=== PATIENT | male | born 1940 | race Caucasian/White ===

== ENCOUNTER → 2019-11-21 19:20 | Outpatient (CLI) | payer MEDICARE, BC ==
[2012-09-28 08:43] VITALS: BMI 27.9
[~2019-11-21 19:20] MED LIST: ALLEGRA PO; ALLEGRA180 MG PO; BENADRYL25 MG PO; EPIPEN0.3 MG/0.3 IM; FLEXERIL10 MG PO; MIRAPEX0.75 MG; PRAVACHOL40 MG PO; PRILOSEC20 MG PO; QUINIDINE SULF200 MG PO
== END | disposition home or self-care (01) ==
LOC: D.LABREF 19:20
PROVIDERS: ATTEND Orthopaedic Surgery
DX: M17.11 Unilateral primary osteoarthritis, right knee (principal)

== ENCOUNTER 2019-11-22 17:15 | Inpatient (IN) | payer MEDICARE, BC ==
[~2019-11-22] VITALS: Ht 180.3 cm; Wt 93.0 kg
[2019-12-13] MEDS ORDERED: NORVASC10 MG PO (10:22)
[2019-12-13] MEDS ORDERED: AZELASTINE137 MCG/0. NASAL (10:22)
[2019-12-13] MEDS ORDERED: FLUTICASONE PRO16 GM NASAL (10:23)
[2019-12-13] MEDS ORDERED: METOPROLOL TART25 MG PO (10:23)
[2019-12-13] MEDS ORDERED: SINGULAIR10 MG PO (10:23)
[2019-12-13] MEDS ORDERED: PROAIR HFA8.5 G1 INH (10:24)
[2019-12-13] MEDS ORDERED: JANTOVEN4 MG PO (10:26)
[2019-12-13] MEDS ORDERED: JANTOVEN6 MG PO (10:27)
[2019-12-14 12:06] LABS: BASOPHILS 0.4 % (0-2); EOSINOPHILS 3.1 % (0-7); HEMATOCRIT 47.8 % (42.0-54.0); HEMOGLOBIN 15.4 g/dL (13.5-17.5); IMMATURE GRANULOCYTES 0.1 % (0-5); LYMPHOCYTES 24.2 % (15-50); MCH 30.1 pg (26.0-34.0); MCHC 32.2 g/dL (31.0-37.0); MCV 93.4 fL (80.0-100.0); MEAN PLATELET VOLUME 8.1 fL (7.4-10.4); MONOCYTES 9.9 % (2-11); NEUTROPHILS 62.3 % (40-80); PLATELET COUNT 248 10x3/uL (130-400); RBC 5.12 10x6/uL (4.20-6.10); RDW 14.2 % (11.5-14.5); WBC 7.1 10x3/uL (4.8-10.8)
[2019-12-14 12:09] LABS: BILIRUBIN NEGATIVE (NEGATIVE); KETONE NEGATIVE (NEGATIVE); NITRITE NEGATIVE (NEGATIVE); UROBILINOGEN NORMAL (NORMAL)
[2019-12-14 12:17] LABS: APTT 52.6 SECONDS (22.8-39.4); CARBON DIOXIDE 26.5 mmol/L (21.0-32.0); CREATININE - SERUM 1.2 mg/dL (0.6-1.3); INR 2.57 (0.85-1.17); POTASSIUM - SERUM 4.5 mmol/L (3.5-5.1); PROTIME 27.2 SECONDS (11.6-15.0)
[2019-12-20] VITALS (8 sets, daily range): BP systolic 111–152; BP diastolic 50–82; BMI 28.6
[2019-12-20] MEDS ORDERED: ACETAMINOPHEN500 M1 PO (06:59)
[2019-12-20 08:11] LABS: APTT 32.5 SECONDS (22.8-39.4); INR 1.26 (0.85-1.17); PROTIME 15.7 SECONDS (11.6-15.0)
--- NOTE | 2019-12-20 10:23 | NUR ---
PT RIGHT LEG CLEANSED WITH HIBECLENS AND ALCOHOL FROM THIGH TO TOES CIRCUMFERENTIALLY PRIOR TO PREP. RN IN STERILE ATTIRE TO PREP OPERATIVE LEG. RIGHT LEG PREPPED FROM THIGH TO TOES CIRCUMFERENTIALLY WITH CHLORAPREP X2. TRAFFIC IN/OUT OF ROOM KEPT TO MINIMUM.
--- NOTE | 2019-12-20 12:53 | NUR ---
PER DR. EVANGELISTA ULLOA TO TRANSFER PATIENT ON 10L TO FLOOR, THEN PT WILL PLACE PATIENT ON CPAP MACHINE.
--- NOTE | 2019-12-20 17:42 | NUR ---
PT COMPLAINING TO EXTREME DISCOMFORT IN BLADDER REGION. SCANNED, 681 ML. IN AND OUT CATH DONE, 800ML RETURN. WILL CONTINUE TO MONITOR.
--- NOTE | 2019-12-20 19:30 | NUR ---
ALERT RESTING IN BED WITH CPM IN USE, REPORTS GOOD PAIN RELIEF FROM PAIN PILL EARLIER, SEE SHIFT ASSESSMENT, CALL LIGHT IN REACH
[2019-12-21 04:30] VITALS: BP 139/69
[2019-12-21 06:47] LABS: BASOPHILS 0.1 % (0-2); EOSINOPHILS 0 % (0-7); HEMATOCRIT 40.2 % (42.0-54.0); HEMOGLOBIN 12.8 g/dL (13.5-17.5); IMMATURE GRANULOCYTES 0.3 % (0-5); LYMPHOCYTES 8.3 % (15-50); MCHC 31.8 g/dL (31.0-37.0); MCV 94.4 fL (80.0-100.0); MEAN PLATELET VOLUME 8.4 fL (7.4-10.4); MONOCYTES 10.8 % (2-11); NEUTROPHILS 80.5 % (40-80); PLATELET COUNT 261 10x3/uL (130-400); RBC 4.26 10x6/uL (4.20-6.10); RDW 14.1 % (11.5-14.5); WBC 12.7 10x3/uL (4.8-10.8)
[2019-12-21 07:10] LABS: CALC OSMOLALITY 274 mosm/kg (275-300); CALCIUM 8.5 mg/dL (8.5-10.1); CARBON DIOXIDE 29.3 mmol/L (21.0-32.0); CHLORIDE - SERUM 100 mmol/L (98-107); MAGNESIUM - SERUM 1.7 mg/dL (1.8-2.4); POTASSIUM - SERUM 4.5 mmol/L (3.5-5.1); SODIUM 137 mmol/L (136-145); UREA NITROGEN 13 mg/dL (7-18); eGFR NON AFRICAN AMERICAN 77 mL/min (90-120)
[2019-12-21 07:15] LABS: GLUCOSE 116 mg/dL (74-106)
[2019-12-21 07:29] LABS: INR 1.18 (0.85-1.17)
[2019-12-21 08:47] VITALS: BP 165/63
--- NOTE | 2019-12-21 09:44 | NUR ---
PT URINATING A LITTLE AT A TIME BUT STILL HAVING SOME DISCOMFORT. IN AND OUT CATH COMPLETED, 800ML RETURN. PT REPORTING RELIEF. WILL CONTINUE TO MONITOR.
--- NOTE | 2019-12-21 09:55 | OP ---
PATIENT NAME: VILMA MADRIGAL MEDICAL RECORD: [id number] :42 LOCATION:[facility] D.1209 ADMISSION DATE:12/20/19 SURGEON: SOLO GILL DO DATE OF OPERATION: 12/20/2019 PROCEDURE PERFORMED: Right total knee arthroplasty. PREOPERATIVE DIAGNOSIS: Right knee osteoarthritis. POSTOPERATIVE DIAGNOSIS: Right knee osteoarthritis. INDICATIONS: Mr. Madrigal is a 79-year-old male who has done all manner of nonoperative treatment for his right knee osteoarthritis. He is tired of dealing with the pain and it is starting to affect his activities of daily living. He wants something done surgically. I informed him we could do a total knee, but he would be at risk for infection, bleeding, damage to nerves and vessels, fracture, failure of implant, continued pain, arthrofibrosis, blood clots, and even . He signed the consent. SURGEON: Solo Gill DO DESCRIPTION OF PROCEDURE: The patient was given a block by anesthesia in the preoperative area. He was taken to the operative suite, laid in the supine position, given general anesthetic, and LMA was placed. He was given 2 g of Ancef and 80 mg of gentamicin. The right lower extremity was then prepped and draped in sterile fashion. A time-out was performed. Everyone was in agreement with correct side, side, site, patient, and procedure. I began by marking out the incision, covered in Ioban, and then made the incision down through the skin with a 10 blade. Then, using a new 10 blade, I did a medial parapatellar approach through the capsule. The fat pad was partially removed and the patella was milled down. I then entered the femoral canal. I used the distal femur cutting guide and cut the distal femur and then proximal tibia based off the medial side. I removed the bone and menisci and coagulated any bleeding at that time with Aquamantys. We then put in the 10 extension block and it fit very well. We then flexed the femur up and sized it to be a 70. I then put the four-in-one cutting block on. I used an paloma wing to ensure there was no notching, there was not. We then cut the four-in-one cutting block, removed the bone, and put on the trial. We then put a 75 poly tray with a 10 poly on and ranged the knee. I marked the rotation on the tibia and then removed the trials after drilling a lug hole in the femur and put the patellar guide on and drilled 3 holes through the patella. I then exposed the tibia, sized it to be 75, reamed and punched it and once it was reamed and punched, I put extra holes in the tibia for cement. Cement was mixed and put in the tibia and on the implant, impacted into place, removed excess cement, impacted on the femur and then put a 10 poly in between and brought to extension. I then irrigated out the patella and cleaned out the holes with a curet, put cement in holes and on the implant, squeezed it into place, and removed excess cement. We put in the 10% povidone-iodine with 500 mL normal saline solution in the knee and let it sit while cement dried and irrigated out with over a liter of normal saline. I then put in a 10 poly and it was very tight, we got it put in and put the locking bar on and ranged well and good stability in flexion and extension. We then irrigated it one more time and put in the Thom and tobramycin powder in the knee and then Davy Loza and I closed the capsule with #1 Vicryl in a dmizej-tn-aokzt fashion and Davy Loza, certified surgical drafter assistant, closed the skin with 2-0 Vicryl in inverted interrupted fashion and put a ZipLine on OPERATIVE REPORT [id number] PRESLAR,VILMA with Adaptic, 4 x 4, ABD, Webril, Tres wrap, PHOENIX hose stocking up to the knee. He was then awakened and taken to recovery in stable condition. BLOOD LOSS: Approximately 200 mL. COMPLICATIONS: None. NTS:[id number] Voice Confirmation ID: [id number] DOCUMENT ID: [id number] SOLO GILL DO at 0955 CC: [id number] DICTATION DATE: 12/20/19 1115 LINOLEUM PRINTER: 12/20/191950 ADM IN [facility] [address] [place] [address]
[2019-12-21 14:02] VITALS: Ht 180.3 cm; Wt 93.0 kg
--- NOTE | 2019-12-21 16:22 | MORECARE ---
CASE MANAGEMENT DISCHARGE SUMMARY PATIENT: VILMA VAZQUEZ UNIT: [id number] ADM DATE: 12/20/19 AGE: 79 : 41 SEX: M ROOM/BED: D.1209 AUTHOR: LIZETH ROSS PHYSICIAN: REFERRING PHYSICIAN: LUIZA GILL DO DATE OF SERVICE: 12/21/19 Discharge Plan Patient Name: IVLMA VAZQUEZ Facility: [facility]:[place] : 1940 Planned Disposition: Home with Home Health Anticipated Discharge Date: 12/21/19 Discharge Date: Expected LOS: 1 Initial Reviewer: [email or web address] Initial Review Date: 12/21/2019 Generated: 12/21/19 5:21 pm External Providers External Provider: [facility] Next Contact Date: Service Request Date: Service Type: Resolution: Reviewer: Comments: Patient Name: VILMA VAZQUEZ Page 88693 at 1622 All edits/amendments must be made on the electronic document DICTATION DATE: 12/21/19 162 DIRECTOR TRANSITION: DORIS 12/21/19 162 RPT#: [id number] [place] DATE: STATUS: ADM IN [facility] [address] [place] [address] END OF REPORT
--- NOTE | 2019-12-21 16:31 | MORECARE ---
CASE MANAGEMENT DISCHARGE SUMMARY PATIENT: VILMA MADRIGAL UNIT: [id number] ADM DATE: 12/20/19 AGE: 79 : 41 SEX: M ROOM/BED: D.1209 AUTHOR: LIZETH ROSS PHYSICIAN: REFERRING PHYSICIAN: LUIZA GILL DO DATE OF SERVICE: 12/21/19 Discharge Plan Patient Name: VILMA MADRIGAL Facility: [facility]:[place] : 1940 Planned Disposition: Home with Home Health Anticipated Discharge Date: 12/21/19 Discharge Date: Expected LOS: 1 Initial Reviewer: [email or web address] Initial Review Date: 12/21/2019 Generated: 12/21/19 5:30 pm DCPIA - Discharge Planning Initial Assessment Updated by [email or web address]: Scarlet Kimball on 12/21/19 4:27 pm * Is the patient Alert and Oriented? Yes * How many steps to enter\exit or inside your home? 4 w/ rail * PCP [facility] * Pharmacy [facility] [address] * Preadmission Environment Home with Family * ADLs Independent * Equipment Bedside Commode CPAP Grab Bars Rolling Walker Shower Chair * Other Equipment Hand held shower head, Ice Machine * List name and contact numbers for known caregivers / representatives who currently or will assist patient after discharge: Юлия Madrigal, Spouse, * Verbal permission to speak to the caregivers and representatives has been obtained from the patient. Yes * Community resources currently utilized Other * Please name any agencies selected above. [employer], [facility] * Additional services required to return to the preadmission environment? Yes * Can the patient safely return to the preadmission environment? Yes * Has this patient been hospitalized within the prior 30 days at any hospital? No Last DP export: 12/21/19 3:22 pm Patient Name: VILMA MADRIGAL Page [id number] at 1631 All edits/amendments must be made on the electronic document DICTATION DATE: 12/21/19 1630 DENTAL AMALGAM PROCESSOR: DORIS 12/21/19 1630 RPT#: [id number] DC DATE: STATUS: ADM IN [facility] [address] [place] [address] END OF REPORT
--- NOTE | 2019-12-21 16:40 | MORECARE ---
CASE MANAGEMENT DISCHARGE SUMMARY PATIENT: VILMA MADRIGAL UNIT: [id number] ADM DATE: 12/20/19 AGE: 79 : 41 SEX: M ROOM/BED: D.1209 AUTHOR: VANDANA,DOC PHYSICIAN: REFERRING PHYSICIAN: LUIZA GILL DO DATE OF SERVICE: 12/21/19 Discharge Plan Patient Name: VILMA MADRIGAL Facility: [facility]:[place] : 1940 Planned Disposition: Home with Home Health Anticipated Discharge Date: 12/21/19 Discharge Date: Expected LOS: 1 Initial Reviewer: [email or web address] Initial Review Date: 12/21/2019 Generated: 12/21/19 5:39 pm Comments DCP- Discharge Planning Updated by [email or web address]: Scarlet Kimball on 12/21/19 3:[address] Patient Name: VILMA MADRIGAL Admission Status: Elective Accout number: [id number] Admission Date: 12-20-2019 : 1940 Admission Diagnosis:UNILATERAL PRIMARY OSTEOARTHRITIS, RIGHT KNEE Attending: LUIZA GILL Current LOS: 1 Anticipated DC Date: 12-21-2019 Planned Disposition: Home with Home Health Primary Insurance: MEDICARE A & B Discharge Planning Comments: After obtaining verbal consent, CM met with patient and spouse about discharge planning /needs. Patient states he plans to return home at discharge. States he does not have transportation to outpatient therapy 3xweek because his spouse works and he doesn't have anyone else to drive him to therapy. Patient choice [facility] for therapy and signed OLGA form. States home environment is safe. States spouse will transport him home at discharge. States [facility], DME has delivered Ice Machine, BSC, and walker. But has not delivered CPM yet. States he is supposed to call [facility] upon discharge and they will deliver CPM at that time. CM called and spoke with Hilton at [employer] and confirmed that CPM is ready to deliver as soon as patient is discharged. Event Marketing Intern: Scarlet Kimball DCPIA - Discharge Planning Initial Assessment Updated by [email or web address]: Scarlet Kimball on 12/21/19 4:27 pm * Is the patient Alert and Oriented? Yes * How many steps to enter\exit or inside your home? 4 w/ rail * PCP [facility] * [facility] [address] * Preadmission Environment Home with Family * ADLs Independent * Equipment Bedside Commode CPAP Grab Bars Rolling Walker Shower Chair * Other Equipment Hand held shower head, Ice Machine * List name and contact numbers for known caregivers / representatives who currently or will assist patient after discharge: Юлия Madrigal, Spouse, * Verbal permission to speak to the caregivers and representatives has been obtained from the patient. Yes * Community resources currently utilized Other * Please name any agencies selected above. [employer], [facility] * Additional services required to return to the preadmission environment? Yes * Can the patient safely return to the preadmission environment? Yes * Has this patient been hospitalized within the prior 30 days at any hospital? No Last DP export: 12/21/19 3:31 pm Patient Name: VILMA MADRIGAL Page 45004 at 1640 All edits/amendments must be made on the electronic document DICTATION DATE: 12/21/19 [facility] RECONDITIONER: DORIS 12/21/19 [facility] RPT#: [id number] DC DATE: STATUS: ADM IN [facility] [address] [place] [address] END OF REPORT
--- NOTE | 2019-12-21 16:50 | MORECARE ---
CASE MANAGEMENT DISCHARGE SUMMARY PATIENT: VILMA MADRIGAL UNIT: [id number] ADM DATE: 12/20/19 AGE: 79 : 41 SEX: M ROOM/BED: D.1209 AUTHOR: VANDANA,DOC PHYSICIAN: REFERRING PHYSICIAN: LUIZA GILL DO DATE OF SERVICE: 12/21/19 Discharge Plan Patient Name: VILMA MADRIGAL Facility: [facility]:[place] : 1940 Planned Disposition: Home with Home Health Anticipated Discharge Date: 12/21/19 Discharge Date: Expected LOS: 1 Initial Reviewer: [email or web address] Initial Review Date: 12/21/2019 Generated: 12/21/19 5:50 pm Comments DCP- Discharge Planning Updated by [email or web address]: Scarlet Kimball on 12/21/19 3:[address] Patient Name: VILMA MADRIGAL Admission Status: Elective Accout number: [id number] Admission Date: 12-20-2019 : 1940 Admission Diagnosis:UNILATERAL PRIMARY OSTEOARTHRITIS, RIGHT KNEE Attending: LUIZA GILL Current LOS: 1 Anticipated DC Date: 12-21-2019 Planned Disposition: Home with Home Health Primary Insurance: MEDICARE A & B Discharge Planning Comments: After obtaining verbal consent, CM met with patient and spouse about discharge planning /needs. Patient states he plans to return home at discharge. States he does not have transportation to outpatient therapy 3xweek because his spouse works and he doesn't have anyone else to drive him to therapy. Patient choice [facility] for therapy and signed OLGA form. States home environment is safe. States spouse will transport him home at discharge. States [employer], DME has delivered Ice Machine, BSC, and walker. But has not delivered CPM yet. States he is supposed to call [facility] upon discharge and they will deliver CPM at that time. CM called and spoke with Hilton at [employer] and confirmed that CPM is ready to deliver as soon as patient is discharged. CM called and spoke with Hamlet at [facility] about referral. Agency will anticipate hospital discharge and Home Health admission on Thursday. CM faxed HH orders and copy of record as requested. CM informed patient and spouse of plan for Home Health to admit Thursday. Both verbalized understanding and satisfaction with discharge plan. CM will continue to follow and assist as needed with discharge planning / needs. Cover Making Machine Operator: Scarlet Kimball DCPIA - Discharge Planning Initial Assessment Updated by [email or web address]: Scarlet Kimball on 12/21/19 4:27 pm * Is the patient Alert and Oriented? Yes * How many steps to enter\exit or inside your home? 4 w/ rail * PCP [facility] * Pharmacy [facility] [address] * Preadmission Environment Home with Family * ADLs Independent * Equipment Bedside Commode CPAP Grab Bars Rolling Walker Shower Chair * Other Equipment Hand held shower head, Ice Machine * List name and contact numbers for known caregivers / representatives who currently or will assist patient after discharge: Юлия Madrigal, Spouse, * Verbal permission to speak to the caregivers and representatives has been obtained from the patient. Yes * Community resources currently utilized Other * Please name any agencies selected above. [employer], [facility] * Additional services required to return to the preadmission environment? Yes * Can the patient safely return to the preadmission environment? Yes * Has this patient been hospitalized within the prior 30 days at any hospital? No Coverage Notice Reviewer: [id number] - Scarlet Kimball Notice Issued Date-Time: 12/21/2019 14:45 Notice Type: Patient Choice Letter Notice Delivered To: Patient Relationship to Patient: Self Preparation Room Manager Name: Delivery Method: HAND - Hand Delivered Calli Days: Prior Verbal Notification: Recipient Understood Notice: Yes Recipient Signature: Yes Med Rec Note Co-signed by Attending: Coverage Notice Comment: Last DP export: 12/21/19 3:40 pm Patient Name: VILMA MADRIGAL Page [id number] at 1650 All edits/amendments must be made on the electronic document DICTATION DATE: 12/21/19 1650 FUEL HANDLER: DORIS 12/21/19 1650 RPT#: [id number] SC DATE: STATUS: ADM IN [facility] [address] [place] [address] END OF REPORT
--- NOTE | 2019-12-21 18:25 | NUR ---
PT NOT URINATING EFFECTIVELY, ABOUT 30ML AT A TIME. 16FR CATH PLACED, 750ML RETURN.
[2019-12-21 20:00] VITALS: BP 127/70
--- NOTE | 2019-12-21 20:00 | NUR ---
RESTING IN BED REPORTS GOOD PAIN RELIEF AFTER GETTIGN DILAUDID, REQUESTING CPM BE RESTARTED FOR A COUPLE MOR HOURS, SEE SHIFT ASSESSMENT, CALL LIGHT IN REACH, COSTA CATH DRAINING YELLOW URINE
[2019-12-22 04:30] VITALS: BP 118/65
[2019-12-22 04:48] LABS: BASOPHILS 0.2 % (0-2); EOSINOPHILS 2.2 % (0-7); HEMATOCRIT 37.4 % (42.0-54.0); HEMOGLOBIN 11.9 g/dL (13.5-17.5); IMMATURE GRANULOCYTES 0.2 % (0-5); LYMPHOCYTES 17.4 % (15-50); MCH 29.8 pg (26.0-34.0); MCHC 31.8 g/dL (31.0-37.0); MCV 93.7 fL (80.0-100.0); MEAN PLATELET VOLUME 8.3 fL (7.4-10.4); MONOCYTES 13.4 % (2-11); NEUTROPHILS 66.6 % (40-80); PLATELET COUNT 230 10x3/uL (130-400); RBC 3.99 10x6/uL (4.20-6.10)
[2019-12-22 04:51] LABS: WBC 9.1 10x3/uL (4.8-10.8)
[2019-12-22 05:07] LABS: CALCIUM 8.1 mg/dL (8.5-10.1); CARBON DIOXIDE 29.9 mmol/L (21.0-32.0); CREATININE - SERUM 1.2 mg/dL (0.6-1.3); MAGNESIUM - SERUM 1.8 mg/dL (1.8-2.4); POTASSIUM - SERUM 3.9 mmol/L (3.5-5.1)
--- NOTE | 2019-12-22 05:15 | NUR ---
COSTA CATH CLAMPED FOR BLADDER TRAINING
--- NOTE | 2019-12-22 07:39 | NUR ---
PT LAYING IN BED EATING BREAKFAST. CPM MACHINE CURRENTLY IN USE. DRESSING TO RIGHT KNEE CLEAN DRY AND INTACT. [place] HOSE IN PLACE WITH SCDS. STATES NO PAIN AT THIS MOMENT. CALL LIGHT IN REACH. SPOUSE AT BEDSIDE
[2019-12-22 07:57] VITALS: BP 138/70
--- NOTE | 2019-12-22 08:29 | NUR ---
COSTA UNCLAMPED AND 200CC YELLOW URINE NOTED RETURNED. STILL DOES NOT FEEL SENSATION TO URINATE. COSTA RECLAMPED.
[2019-12-22] MEDS ORDERED: HYDROCODON-ACE1 EA10 PO (08:40)
[2019-12-22] MEDS ORDERED: LOVENOX40 MG/0.4 SC (08:40)
[2019-12-22] MEDS ORDERED: FLOMAX0.4 MG PO (08:41)
[2019-12-22] MEDS ORDERED: BACTRIM DS TAB1 EAC1 PO (08:41)
--- NOTE | 2019-12-22 09:47 | NUR ---
AMBULATED PER THERAPY. SITTING IN RECLINER WITH ALARM ON. PAIN PILL GIVEN PER REQUEST FOR 2 TO KNEE. CALL LIGHT IN REACH
--- NOTE | 2019-12-22 11:08 | MORECARE ---
CASE MANAGEMENT DISCHARGE SUMMARY PATIENT: VILMA VAZQUEZ UNIT: [id number] ADM DATE: 12/20/19 AGE: 79 : 41 SEX: M ROOM/BED: D.1209 AUTHOR: VANDANA,DOC PHYSICIAN: REFERRING PHYSICIAN: LUIZA GILL DO DATE OF SERVICE: 12/22/19 Discharge Plan Patient Name: VILMA VAZQUEZ Facility: [facility]:[place] : 1940 Planned Disposition: Home with Home Health Anticipated Discharge Date: 12/21/19 Discharge Date: Expected LOS: 1 Initial Reviewer: [email or web address] Initial Review Date: 12/21/2019 Generated: 12/22/19 12:07 pm Comments DCP- Discharge Planning Updated by [email or web address]: Alvina Jurado on 12/22/19 10:[address] 1000 RECEIVED A TELEPHONE CALL FROM [facility] REGARDING DISCHARGE. PLAN FOR DISCHARGE TO HOME TODAY. [facility] REQUESTED THAT A H/P BE FAXED. FAXED REQUESTED INFORMATION. WILL FAX 12/22/19 MD NOTE FOR UPDATE. PATIENT HAD A COSTA INSERTED LAST PM. HE MAYBE DISCHARGED TO HOME WITH COSTA. DCP- Discharge Planning Updated by [email or web address]: Scarlet Kimball on 12/21/19 3:[address] Patient Name: VILMA VAZQUEZ Admission Status: Elective Accout number: [id number] Admission Date: 12-20-2019 : 1940 Admission Diagnosis:UNILATERAL PRIMARY OSTEOARTHRITIS, RIGHT KNEE Attending: LUIZA GILL Current LOS: 1 Anticipated DC Date: 12-21-2019 Planned Disposition: Home with Home Health Primary Insurance: MEDICARE A & B Discharge Planning Comments: After obtaining verbal consent, CM met with patient and spouse about discharge planning /needs. Patient states he plans to return home at discharge. States he does not have transportation to outpatient therapy 3xweek because his spouse works and he doesn't have anyone else to drive him to therapy. [facility]. States home environment is safe. States spouse will transport him home at discharge. [facility] has delivered Ice Machine, BSC, and walker. But has not delivered CPM yet. States he is supposed to call [facility] upon discharge and they will deliver CPM at that time. CM called and spoke with Hilton at [facility] and confirmed that CPM is ready to deliver as soon as patient is discharged. CM called and spoke with Ham[facility] at [facility]. Agency will anticipate hospital discharge and Home Health admission on Thursday. CM faxed HH orders and copy of record as requested. CM informed patient and spouse of plan for Home Health to admit Thursday. Both verbalized understanding and satisfaction with discharge plan. CM will continue to follow and assist as needed with discharge planning / needs. Paper Counter: Scarlet Kimball DCPIA - Discharge Planning Initial Assessment Updated by [email or web address]: Scarlet Kimball on 12/21/19 4:27 pm * Is the patient Alert and Oriented? Yes * How many steps to enter\exit or inside your home? 4 w/ rail * PCP [facility] * Pharmacy [facility] [address] * Preadmission Environment Home with Family * ADLs Independent * Equipment Bedside Commode CPAP Grab Bars Rolling Walker Shower Chair * Other Equipment Hand held shower head, Ice Machine * List name and contact numbers for known caregivers / representatives who currently or will assist patient after discharge: Юлия Lancer, Spouse, * Verbal permission to speak to the caregivers and representatives has been obtained from the patient. Yes * Community resources currently utilized Other * Please name any agencies selected above. [employer], [facility] * Additional services required to return to the preadmission environment? Yes * Can the patient safely return to the preadmission environment? Yes * Has this patient been hospitalized within the prior 30 days at any hospital? No Coverage Notice Reviewer: [id number] - Scarlet Kimball Notice Issued Date-Time: 12/21/2019 14:45 Notice Type: Patient Choice Letter Notice Delivered To: Patient Relationship to Patient: Self Financial Planning Assistant Name: Delivery Method: HAND - Hand Delivered Calli Days: Prior Verbal Notification: Recipient Understood Notice: Yes Recipient Signature: Yes Med Rec Note Co-signed by Attending: Coverage Notice Comment: Last DP export: 12/21/19 3:50 pm Patient Name: VILMA VAZQUEZ Page 01029 at 1108 All edits/amendments must be made on the electronic document DICTATION DATE: 12/22/191106 HELP DESK ASSISTANT: DM 12/22/191106 RPT#: [id number] DC DATE: STATUS: ADM IN [facility] [address] [place] [address] END OF REPORT
--- NOTE | 2019-12-22 11:37 | NUR ---
PT CALLED TO HAVE COSTA UNCLAMPED. STATES FEELS LIKE A FULL BLADDER. COSTA UNCLAMPED AND APPROX 300CC RETURNED. COSTA RECLAMPED. CALL LIGHT IN REACH
[2019-12-22 11:54] VITALS: BP 119/68
--- NOTE | 2019-12-22 13:28 | NUR ---
DRESSING CHANGED TO RIGHT KNEE. INCISION CLEAN DRY AND INTACT AND ZIPPER REMAINS IN PLACE. DRESSING APPLIED WITH LYNN WRAP. SPOUSE AT BEDSIDE AND WATCHED HOW TO CHANGE. LEG BAG APPLIED TO COSTA CATHETER AND SPOUSE /PATIENT VERBALIZED HOW TO CHANGE TO DRAINAGE BAG AND BACK TO LEG BAG. NEW DRAINAGE BAG GIVEN TO PT. SALINE LOCK REMOVED. AWAITING DISCHARGE PAPERS
--- NOTE | 2019-12-22 14:23 | NUR ---
pt discharged with spouse and personal belongings. questions answered. to front door per wheelchair.
--- NOTE | 2019-12-22 14:38 | MORECARE ---
CASE MANAGEMENT DISCHARGE SUMMARY PATIENT: VILMA MADRIGAL UNIT: [id number] ADM DATE: 12/20/19 AGE: 79 : 41 SEX: M ROOM/BED: D.1209 AUTHOR: VANDANA,DOC PHYSICIAN: REFERRING PHYSICIAN: LUIZA GILL DO DATE OF SERVICE: 12/22/19 Discharge Plan Patient Name: VILMA MADRIGAL Facility: [facility]:[place] : 1940 Planned Disposition: Home with Home Health Anticipated Discharge Date: 12/21/19 Discharge Date: 12/22/2019 Expected LOS: 1 Initial Reviewer: [email or web address] Initial Review Date: 12/21/2019 Generated: 12/22/19 3:37 pm Comments DCP- Discharge Planning Updated by [email or web address]: Alvina Jurado on 12/22/19 1:[address] CLINICAL UPDATE PROVIDED WITH 12/22/19 NOTES FAXED TO [facility].. PATIENT'S PROVIDING TRANSPORTATION. DCP- Discharge Planning Updated by [email or web address]: Alvina Jurado on 12/22/19 10:[address] 1000 RECEIVED A TELEPHONE CALL FROM [facility] REGARDING DISCHARGE. PLAN FOR DISCHARGE TO HOME TODAY. [facility] REQUESTED THAT A H/P BE FAXED. FAXED REQUESTED INFORMATION. WILL FAX 12/22/19 MD NOTE FOR UPDATE. PATIENT HAD A COSTA INSERTED LAST PM. HE MAYBE DISCHARGED TO HOME WITH COSTA. DCP- Discharge Planning Updated by [id number]: Scarlet Kimball on 12/21/19 3:[address] Patient Name: VILMA MADRIGAL Admission Status: Elective Accout number: [id number] Admission Date: 12-20-2019 : 1940 Admission Diagnosis:UNILATERAL PRIMARY OSTEOARTHRITIS, RIGHT KNEE Attending: LUIZA GILL Current LOS: 1 Anticipated DC Date: 12-21-2019 Planned Disposition: Home with Home Health Primary Insurance: MEDICARE A & B Discharge Planning Comments: After obtaining verbal consent, CM met with patient and spouse about discharge planning /needs. Patient states he plans to return home at discharge. States he does not have transportation to outpatient therapy 3xweek because his spouse works and he doesn't have anyone else to drive him to therapy. Patient choice [facility] for therapy and signed OLGA form. States home environment is safe. States spouse will transport him home at discharge. [facility] has delivered Ice Machine, BSC, and walker. But has not delivered CPM yet. States he is supposed to call [employer] upon discharge and they will deliver CPM at that time. CM called and spoke with Hilton at [facility] and confirmed that CPM is ready to deliver as soon as patient is discharged. CM called and spoke with Hamlet at [facility] about referral. Agency will anticipate hospital discharge and Home Health admission on Thursday. CM faxed HH orders and copy of record as requested. CM informed patient and spouse of plan for Home Health to admit Thursday. Both verbalized understanding and satisfaction with discharge plan. CM will continue to follow and assist as needed with discharge planning / needs. Commercial Carpet Installer: Scarlet GARCIAA - Discharge Planning Initial Assessment Updated by [email or web address]: Scarlet Kimball on 12/21/19 4:27 pm * Is the patient Alert and Oriented? Yes * How many steps to enter\exit or inside your home? 4 w/ rail * PCP Flaco * Pharmacy [facility] [address] * Preadmission Environment Home with Family * ADLs Independent * Equipment Bedside Commode CPAP Grab Bars Rolling Walker Shower Chair * Other Equipment Hand held shower head, Ice Machine * List name and contact numbers for known caregivers / representatives who currently or will assist patient after discharge: Юлия Madrigal, Spouse, * Verbal permission to speak to the caregivers and representatives has been obtained from the patient. Yes * Community resources currently utilized Other * Please name any agencies selected above. [facility] * Additional services required to return to the preadmission environment? Yes * Can the patient safely return to the preadmission environment? Yes * Has this patient been hospitalized within the prior 30 days at any hospital? No Coverage Notice Reviewer: [id number] - Scarlet Kimball Notice Issued Date-Time: 12/21/2019 14:45 Notice Type: Patient Choice Letter Notice Delivered To: Patient Relationship to Patient: Self Parts Lister Name: Delivery Method: HAND - Hand Delivered Calli Days: Prior Verbal Notification: Recipient Understood Notice: Yes Recipient Signature: Yes Med Rec Note Co-signed by Attending: Coverage Notice Comment: Last DP export: 12/22/19 10:08 a Patient Name: VILMA MADRIGAL Page [id number] at 1438 All edits/amendments must be made on the electronic document DICTATION DATE: 12/22/191437 CLAY DRY PRESS HELPER: DORIS 12/22/191437 RPT#: [id number] DC DATE:12/22/19 STATUS: DIS IN [facility] [address] [place] [address] END OF REPORT
--- NOTE | 2019-12-23 09:38 | MORECARE ---
CASE MANAGEMENT DISCHARGE SUMMARY PATIENT: VILMA MADRIGAL UNIT: [id number] ADM DATE: 12/20/19 AGE: 79 : 41 SEX: M ROOM/BED: D.1209 AUTHOR: VANDANA,DOC PHYSICIAN: REFERRING PHYSICIAN: LUIZA GILL DO DATE OF SERVICE: 12/23/19 Discharge Plan Patient Name: VILMA MADRIGAL Facility: [facility]:[place] : 1940 Planned Disposition: Home with Home Health Anticipated Discharge Date: 12/21/19 Discharge Date: 12/22/2019 Expected LOS: 1 Initial Reviewer: [email or web address] Initial Review Date: 12/21/2019 Generated: 12/23/19 10:38 am Comments DCP- Discharge Planning Updated by [email or web address]: Alvina Jurado on 12/22/19 1:[address] CLINICAL UPDATE PROVIDED WITH 12/22/19 NOTES FAXED TO [facility].. PATIENT'S PROVIDING TRANSPORTATION. DCP- Discharge Planning Updated by [email or web address]: Alvina Jurado on 12/22/19 10:[address] 1000 RECEIVED A TELEPHONE CALL FROM [facility] REGARDING DISCHARGE. PLAN FOR DISCHARGE TO HOME TODAY. [facility] REQUESTED THAT A H/P BE FAXED. FAXED REQUESTED INFORMATION. WILL FAX 12/22/19 MD NOTE FOR UPDATE. PATIENT HAD A COSTA INSERTED LAST PM. HE MAYBE DISCHARGED TO HOME WITH COSTA. DCP- Discharge Planning Updated by [id number]: Scarlet Kimball on 12/21/19 3:[address] Patient Name: VILMA MADRIGAL Admission Status: Elective Accout number: [id number] Admission Date: 12-20-2019 : 1940 Admission Diagnosis:UNILATERAL PRIMARY OSTEOARTHRITIS, RIGHT KNEE Attending: LUIZA GILL Current LOS: 1 Anticipated DC Date: 12-21-2019 Planned Disposition: Home with Home Health Primary Insurance: MEDICARE A & B Discharge Planning Comments: After obtaining verbal consent, CM met with patient and spouse about discharge planning /needs. Patient states he plans to return home at discharge. States he does not have transportation to outpatient therapy 3xweek because his spouse works and he doesn't have anyone else to drive him to therapy. Patient choice [facility] for therapy and signed LOGA form. States home environment is safe. States spouse will transport him home at discharge. [facility] has delivered Ice Machine, BSC, and walker. But has not delivered CPM yet. States he is supposed to call [employer] upon discharge and they will deliver CPM at that time. CM called and spoke with Hilton at [facility] and confirmed that CPM is ready to deliver as soon as patient is discharged. CM called and spoke with Hamlet at [facility] about referral. Agency will anticipate hospital discharge and Home Health admission on Thursday. CM faxed HH orders and copy of record as requested. CM informed patient and spouse of plan for Home Health to admit Thursday. Both verbalized understanding and satisfaction with discharge plan. CM will continue to follow and assist as needed with discharge planning / needs. Prescription Clerk Lenses: Scarlet GARCIAA - Discharge Planning Initial Assessment Updated by [id number]: Scarlet Kimball on 12/21/19 4:27 pm * Is the patient Alert and Oriented? Yes * How many steps to enter\exit or inside your home? 4 w/ rail * PCP [facility] * Pharmacy [facility] [address] * Preadmission Environment Home with Family * ADLs Independent * Equipment Bedside Commode CPAP Grab Bars Rolling Walker Shower Chair * Other Equipment Hand held shower head, Ice Machine * List name and contact numbers for known caregivers / representatives who currently or will assist patient after discharge: Юлия Madrigal, Spouse, * Verbal permission to speak to the caregivers and representatives has been obtained from the patient. Yes * Community resources currently utilized Other * Please name any agencies selected above. [facility] * Additional services required to return to the preadmission environment? Yes * Can the patient safely return to the preadmission environment? Yes * Has this patient been hospitalized within the prior 30 days at any hospital? No Coverage Notice Reviewer: [id number] - Scarlet Kimball Notice Issued Date-Time: 12/21/2019 14:45 Notice Type: Patient Choice Letter Notice Delivered To: Patient Relationship to Patient: Self Hog Confinement System Manager Name: Delivery Method: HAND - Hand Delivered Calli Days: Prior Verbal Notification: Recipient Understood Notice: Yes Recipient Signature: Yes Med Rec Note Co-signed by Attending: Coverage Notice Comment: Last DP export: 12/22/19 1:38 p Patient Name: PRESLAR, VILMA Page [phone] at 0938 All edits/amendments must be made on the electronic document DICTATION DATE: 12/23/19937 ASSESSMENT CONSULTANT: DORIS 12/23/19937 RPT#: [id number] DC DATE:12/22/19 STATUS: DIS IN [facility] [address] [place] [address] END OF REPORT
== END 2019-12-22 14:23 | disposition home health service (06) | DRG 470 ==
LOC: D.SDCHOLD 12-14 10:00 → D.M3 12-20 06:10 → D.SDCHOLD 12-20 06:10 → D.M3 12-20 13:30
PROVIDERS: Anesthesiology; Family Medicine; ADMIT Orthopaedic Surgery; ATTEND Orthopaedic Surgery
PROC: 0SRC0J9 Replacement of Right Knee Joint with Synthetic Substitute, Cemented, Open Approach (ICD-10-PCS; principal; 2019-12-20 08:15)
DX: M17.11 Unilateral primary osteoarthritis, right knee (principal); I10 Essential (primary) hypertension; I48.91 Unspecified atrial fibrillation; E78.5 Hyperlipidemia, unspecified; K21.9 Gastro-esophageal reflux disease without esophagitis; G47.33 Obstructive sleep apnea (adult) (pediatric)